=== PATIENT | female | born 1975 | race Caucasian/White ===

== ENCOUNTER 2021-03-10 16:23 | Emergency (ER) | payer OTHER, SELFPAY ==
[2021-03-10 16:35] VITALS: BP 113/90; PULSE 89; RESP 16; TEMP 37.1; O2SAT 100
--- NOTE | 2021-03-10 16:42 | ED.URI ---
HPI - URI/Sore Throat General Chief Complaint: Upper Respiratory Infection Stated Complaint: Congestion,Cough Source: patient and RN notes reviewed Mode of arrival: ambulatory History of Present Illness HPI Narrative: This is a 46-year-old female presented to urgent care with complaints of postnasal dripping, headache, sinus tenderness, and sore throat according to patient her symptoms has been here for approximately 1 week and has not improved she has taken DayQuil at home to relieve her symptoms. According to patient in the past she has had sinus infections due to her allergies. The patient denies SOB, CP, palpitation, extremity numbness, lightheadedness, dizziness, constipation, diarrhea, chills, or fever. Related Data Allergies Allergy/AdvReac Type Severity Reaction Status Date / Time No Known Allergies Allergy Verified 03/10/21 16:43 Review of Systems Review of Systems: A 14 organ system Review of Systems was performed and pertinent positives included in the HPI, otherwise remaining ROS is negative. [facility] Family History Family History (Updated 03/10/21 @ 16:43 by REKHA Ocampo-C) Other Family history non-contributory Exam Narrative: GENERAL: This is a well-nourished, well-developed patient, in no apparent distress. HEAD: normocephalic, atraumatic. Maxillary tenderness EYES: PERRL. Sclera clear/white. Vision is grossly intact. EARS: External ears normal, auditory canals clear and without drainage, TMs normal without perforation. Hearing grossly intact. NOSE: External nose normal with no obvious nasal discharge, nares without redness, no rhinorrhea. THROAT: Mucous membranes moist, posterior pharynx with erythema NECK: Neck supple, non-tender without lymphadenopathy, masses or thyromegaly. CARDIOVASCULAR: Regular rate and rhythm without murmurs, gallops, or rubs. RESPIRATORY: Clear to auscultation. Breath sounds equal bilaterally. No wheezes, rales, or rhonchi. GASTROINTESTINAL: Abdomen soft, non-tender, nondistended. Bowel sounds are active. No hepato-splenomegaly, or palpable masses. No guarding. SKIN: warm, intact with no suspicious lesions or rash, good texture and turgor. NEURO: awake, alert, and oriented to person, place and time. There were no obvious focal neurologic abnormalities. Steady gait EXTREMITIES: Normal range of motion. No edema. No calf tenderness. Negative Homans sign bilaterally. BACK: Nontender without deformity or crepitance. No flank tenderness. Course Course Emergency Course: Patient will be treated for sinusitis she will discharged with Augmentin 875 mg twice daily x7 days, Flonase with Claritin Vital Signs Vital signs: Vital Signs Temperature 98.8 F 03/10/21 16:35 Pulse Rate 89 03/10/21 16:35 Respiratory Rate 16 03/10/21 16:35 Blood Pressure 113/90 03/10/21 16:35 Pulse Oximetry 100 03/10/21 16:35 Temperature 98.8 F 03/10/21 16:35 Pulse Rate 89 03/10/21 16:35 Respiratory Rate 16 03/10/21 16:35 Blood Pressure 113/90 03/10/21 16:35 Pulse Oximetry 100 03/10/21 16:35 MDM - URI/Sore Throat Differential Diagnosis Differential diagnosis: Likely upper respiratory infection, sinusitis, viral infection and pharyngitis Discharge Plan Discharge Clinical Impression: Sinusitis Qualifiers: Sinusitis location: maxillary Chronicity: acute Recurrence: recurrent Qualified Code(s): J01.01 - Acute recurrent maxillary sinusitis Patient Disposition: Home, Self-Care Condition: Stable Instructions: Antibiotic Form, Sinusitis (ED) Additional Instructions: What are the symptoms of sinusitis? - Common symptoms of sinusitis include: ?Stuffy or blocked nose ?Thick yellow or green discharge from the nose ?Pain in the teeth ?Pain or pressure in the face - This often feels worse when a person bends forward. People with sinusitis can also have other symptoms that include: ?Fever ?Cough ?Trouble smelling ?Ear pressure or fullness ?Headache ?B
== END 2021-03-10 16:55 | disposition home or self-care (01) ==
PROVIDERS: Emergency Provider Nurse Practitioner
DX: J01.01 Acute recurrent maxillary sinusitis (principal)
CPT/HCPCS: 99203; G0463